=== PATIENT | female | born 1945 | race African-American/Black ===

== ENCOUNTER 2020-10-08 05:22 | Emergency (ER) | payer MEDICARE ==
[2020-10-08] MEDS ORDERED: Sodium Chloride Irrig Solution 250 ML ONE (05:51)
[2020-10-08] MEDS ORDERED: HYDROcodone/Acetaminophen 5/325 mg Tablet ONE (06:06)
[2020-10-08] MEDS ORDERED: Ibuprofen 600 MG TAB ONE (06:06)
[2020-10-08] MEDS ORDERED: Azithromycin 250 MG TAB ONE (06:08)
== END 2020-10-08 06:20 | disposition home or self-care (01) ==
LOC: MADERS 05:22
DX: H60.91 Unspecified otitis externa, right ear (principal); I10 Essential (primary) hypertension; Z79.899 Other long term (current) drug therapy
CPT/HCPCS: 69209

== ENCOUNTER 2025-05-09 09:08 | Emergency (ER) | payer MEDICARE | END 2025-05-09 09:49 | disposition home or self-care (01) | LOC: MADERS 09:08 | DX: U07.1 COVID-19 (principal); I10 Essential (primary) hypertension; E03.9 Hypothyroidism, unspecified; Z79.899 Other long term (current) drug therapy; Z79.890 Hormone replacement therapy | CPT/HCPCS: 99283 ==